=== PATIENT | female | born 1960 | race Caucasian/White ===

== ENCOUNTER 2023-09-22 05:09 | Observation (INO) ==
--- NOTE | 2023-08-25 08:36 | PAT Medication Instructions ---
Medication Instructions Date of Service August 25, 2023 Home Medications Medication Instructions Recorded epinephrine 0.3 mg/0.3 mL 0.3 mg (0.3 mL) IM Q10M PRN 03/12/20 injection, auto-injector (EpiPen anaphylaxis #2 ea 2-John) albuterol sulfate 90 mcg/actuation 1 puff inhalation Q6H PRN 03/05/22 aerosol inhaler (ProAir HFA) shortness of breath or wheezing #8.5 grams ketoconazole 2 % shampoo 1 applic topical Q14D #120 mL 10/04/22 atorvastatin 20 mg tablet 20 mg PO QAM #90 tabs 01/26/23 levothyroxine 50 mcg tablet 75 mcg (1.5 x 50 mcg) PO QAM #135 06/16/23 tabs pantoprazole 40 mg tablet,delayed 40 mg PO BID #180 tabs 07/04/23 release epinephrine 0.3 mg/0.3 mL injection, auto-injector (EpiPen 2-John) 0.3 mg (0.3 mL) IM Q10M PRN aluminum hydrox-magnesium carb 95 mg-358 mg/15 mL oral suspension (Gaviscon) 15 ml PO UD PRN fexofenadine 60 mg-pseudoephedrine ER 120 mg tablet,ext.release,12 hr (Vandana-D 12 Hour) 1 tab PO QAM Probiotic 1 tab PO QAM albuterol sulfate 90 mcg/actuation aerosol inhaler (ProAir HFA) 1 puff i nhalation Q6H PRN ketoconazole 2 % shampoo 1 applic topical Q14D atorvastatin 20 mg tablet 20 mg PO QAM levothyroxine 50 mcg tablet 75 mcg (1.5 x 50 mcg) PO QAM pantoprazole 40 mg tablet,delayed release 40 mg PO BID cholecalciferol (vitamin D3) 25 mcg (1,000 unit) capsule (Vitamin D3) 25 mcg PO DAILY escitalopram oxalate 10 mg tablet 10 mg PO HS magnesium 1 tab PO DAILY psyllium husk 3.4 gram/5.4 gram oral powder (Metamucil) 1 tbsp PO DAILY triamcinolone acetonide 0.1 % topical cream 1 applic topical DAILY zinc 1 tab PO DAILY Continue as directed epinephrine 0.3 mg/0.3 mL injection, auto-injector (EpiPen 2-John) 0.3 mg (0.3 mL) IM Q10M PRN(if needed) STOP taking 24 hours before surgery ketoconazole 2 % shampoo 1 applic topical Q14D triamcinolone acetonide 0.1 % topical cream 1 applic topical DAILY DO NOT take the morning of surgery aluminum hydrox-magnesium carb 95 mg-358 mg/15 mL oral suspension (Gaviscon) 15 ml PO UD PRN fexofenadine 60 mg-pseudoephedrine ER 120 mg tablet,ext.release,12 hr (Vandana-D 12 Hour) 1 tab PO QAM Probiotic 1 tab PO QAM cholecalciferol (vitamin D3) 25 mcg (1,000 unit) capsule (Vitamin D3) 25 mcg PO DAILY magnesium 1 tab PO DAILY psyllium husk 3.4 gram/5.4 gram oral powder (Metamucil) 1 tbsp PO DAILY zinc 1 tab PO DAILY Take morning of surgery With a small sip of water, OTHERWISE NOTHING TO EAT OR DRINK AFTER MIDNIGHT: albuterol sulfate 90 mcg/actuation aerosol inhaler (ProAir HFA) 1 puff inhalation Q6H PRN(use if needed; please bring with you to hospital day of surgery if possible) atorvastatin 20 mg tablet 20 mg PO QAM levothyroxine 50 mcg tablet 75 mcg (1.5 x 50 mcg) PO QAM pantoprazole 40 mg tablet,delayed release 40 mg PO BID Take evening before surgery albuterol sulfate 90 mcg/actuation aerosol inhaler (ProAir HFA) 1 puff inhalation Q6H PRN(if needed) pantoprazole 40 mg tablet,delayed release 40 mg PO BID escitalopram oxalate 10 mg tablet 10 mg PO HS Other Notes If you have any questions please call us at [phone] or [phone] or [phone] or [phone]
--- NOTE | 2023-08-31 10:27 | Anesthesiology Consultation ---
Date of Service August 31, 2023 Assessment & Plan (1) Encounter for pre-operative examination: - Outpatient joint assessment: Pt currently scheduled for inpatient pathway. If surgeon requests review for outpatient joint pathway, patient is not recommended candidate for outpatient joint program from anesthesia standpoint based on available information. - PCP visit (07/04/23): "The patient recounts an incident two weeks ago during a vacation where she experienced a fall while seated on an unfinished ventage chair. She experienced a sudden clicking sound, causing her to fall backwards, striking her head on the logs behind her. Despite the impact, she did not lose consciousness or experience vomiting. The initial fall and injury occurred 3 weeks ago." "Due to the patient's pain after fall approximately 2 to 3 weeks after the original fall with no other associated symptoms will rule out potential fracture or injury.. Obtain x-ray of cervical spine.. Patient recommended ER evaluation if the patient's symptoms become severe, associated with headache nausea vomiting confusion. The symptoms should improve if muscular over the next couple weeks if not additional imaging may be warranted such as a CT of the head, CT of the neck.." Patient had c-spine imaging done 07/05/23 with no cervical spine fractures identified. No evidence for cervical spine instability during flexion or extension. No residual issues/complaints developed subsequently per patient at PAT visit 08/31/23. - Infectious disease screening: Per assessment on 08/31/23: No known recent infectious disease contacts. Patient states she did not wear oral appliance the previous night as she normally does and had sore throat/sinus issues the following day which she felt is r/t to this (similar scenarios in the past per patient). Home Covid test came back negative 08/31/23. Covid test done 08/30 ([facility]) was negative as well. Patient was advised to monitor symptoms and contact PAT if not back to baseline prior to surgery. Chart Review Chart Review: Acceptable Risk for Surgery (pending evaluation DOS) and Patient seen in Pre Admission Testing Teaching & Discussion Pre-Anesthesia Teaching/Discussion Notes: Instructed NPO after midnight before surgery,except medications with 15 cc of water. Medication instructions provided according to the PAT guidelines. History Surgery Operation Date: 09/16/23 08:50 Proposed Procedures p Right Total Knee Arthroplasty - Bill Dotson MD Height/Weight Height: 5 ft 7 in Weight: 93.9 kg Allergies Allergy/AdvReac Type Severity Reaction Status Date / Time duloxetine AdvReac Mild Verified 08/18/23 11:08 acetaminophen [From Percocet] AdvReac Unknown N/V Verified 08/18/23 11:08 hydrocodone [From Vicodin] AdvReac Unknown N/V Verified 08/18/23 11:08 ketorolac [From Toradol] AdvReac Unknown N/V Verified 08/18/23 11:08 oxycodone [From Percocet] AdvReac Unknown N/V Verified 08/18/23 11:08 sumatriptan [From Imitrex] AdvReac Unknown N/V Verified 08/18/23 11:08 MOLDS/ANIMALS/GRASS/TREES/DUST Allergy Unknown Sinusitis, Uncoded 08/26/23 11:00 welts, asthma flare Medications Home Medications Medication Instructions Recorded Confirmed Last Taken epinephrine 0.3 mg/0.3 mL 0.3 mg (0.3 mL) IM Q10M PRN 03/12/20 08/18/23 Unknown injection, auto-injector (EpiPen anaphylaxis #2 ea 2-John) aluminum hydrox-magnesium carb 95 15 ml PO UD PRN Heartburn 10/15/20 08/18/23 10/10/20 mg-358 mg/15 mL oral suspension (Gaviscon) fexofenadine 60 mg-pseudoephedrine 1 tab PO QAM allergy symptoms 11/26/21 08/18/23 01/05/22 ER 120 mg tablet,ext.release,12 hr (Vandana-D 12 Hour) Probiotic 1 tab PO QAM 12/31/21 08/18/23 01/05/22 albuterol sulfate 90 mcg/actuation 1 puff inhalation Q6H PRN 03/05/22 08/18/23 Unknown aerosol inhaler (ProAir HFA) shortness of breath or wheezing #8.5 grams ketoconazole 2 % shampoo 1 applic topical Q14D #120 mL 10/04/22 08/18/23 Unknown atorvastatin 20 mg tablet 20 mg PO QAM #90 tabs 01/26/23 08/18/23 Unknown levothyroxine 50 mcg tablet 75 mcg (1.5 x 50 mcg) PO QAM #135 06/16/23 08/18/23 Unknown tabs pantoprazole 40 mg tablet,delayed 40 mg PO BID #180 tabs 07/04/23 08/18/23 Unknown release cholecalciferol (vitamin D3) 25 25 mcg PO DAILY 08/18/23 08/18/23 Unknown mcg (1,000 unit) capsule (Vitamin D3) escitalopram oxalate 10 mg tablet 10 mg PO HS 08/18/23 08/18/23 Unknown magnesium 1 tab PO DAILY 08/18/23 08/18/23 Unknown psyllium husk 3.4 gram/5.4 gram 1 tbsp PO DAILY 08/18/23 08/18/23 Unknown oral powder (Metamucil) triamcinolone acetonide 0.1 % 1 applic topical DAILY 08/18/23 08/18/23 Unknown topical cream zinc 1 tab PO DAILY 08/18/23 08/18/23 Unknown Wheeled Walker #1 ea 08/29/23 Unknown Past Medical History Medical History Adjustment disorder with depressed mood Allergic rhinitis Asthma Bilateral primary osteoarthritis of knee H/O supraventricular tachycardia Hx cardiac ablation Hx of gastroesophageal reflux (GERD) Hx of osteoarthritis Hyperlipidemia Hypothyroidism Migraine headache hx Nocturnal hypoxemia Per records Paroxysmal atrial tachycardia Hx cardiac ablation Paroxysmal ventricular tachycardia Raynauds disease Restless legs syndrome Rosacea Sleep apnea Sleep study 02/2020: Obstructive sleep apnea effectively treated with an oral appliance (recommendation per study: continue use of oral appliance) Follows with Dr. Peck Exercise / Class Metabolic Activity III < 4 Walking/Shop/Light housework (one FS: No CP, + SOB (stable/chronic)) Past Family History Family History Father , 1985 Alzheimer disease Mother Dementia Congestive heart failure Thyroid goiter Son Allergic rhinitis Grandmother Congestive heart failure Myocardial infarction Sister Family history of colonic polyps Hypothyroid Brother Family history of colonic polyps Other Family history of cancer of mouth Denies family history of Ovarian cancer Breast cancer Colorectal cancer Past Surgical History Surgical History H/O cardiac radiofrequency ablation (~2017) H/O colonoscopy H/O right inguinal hernia repair History of anesthesia reaction "Tends to burn right through it," wakes up during procedures Prior to one of her procedures, pt was very cold/shivering when brought to OR and they had to warm her up for a long time before they could start the surgery History of bronchoscopy 2010 History of esophagogastroduodenoscopy (EGD) History of foot surgery Right foot - repair of perineal tendon (2022) S/P nasal septoplasty 2015 2016- "to clean up polyps from first surgery" Past Anesthesia History Other * "Tends to burn right through it," wakes up during procedures * Prior to one of her procedures, pt was very cold/shivering when brought to OR and they had to warm her up for a long time before they could start the surgery History of PONV No Hx of PONV and Hx of Motion Sickness Social History Smoking Status: Never smoker Do You Dip or Chew Tobacco: No Hx Alcohol Use: Yes Alcohol type: wine and hard liquor alcohol intake frequency: holidays/special occasions only substance use type: marijuana (Remote hx 45 years ago) Review of Systems Patient denies chest pain, shortness of breath, fever, chills, cough, wheezing, palpitations. Physical Exam Vital Signs BP 120/80 P 90 TEMP 98.6 SP02 96%RA RESP 18 Physical Full cervical extension range of motion. Full TMJ range of motion. TMD 3 finger breaths Mallampati Score 3 Dentition: intact, upper front veneer Lungs: clear throughout to auscultation Cardiac: regular rate and rhythm, no murmurs noted Spine: normal Carotid arteries: negative bruit Extremities: no LE edema Lab Results Anesthesia Preop Results Results Anesthesia Widget: WBC 7.93 K/ul (4.8-10.8) 08/31/23 Hgb 13.4 g/dl (12.0-16.0) 08/31/23 Hct 39.8 % (37.0-47.0) 08/31/23 Plt 340 K/uL (130-400) 08/31/23 Na 137 mmol/L (136-145) 08/31/23 K 3.9 mmol/L (3.5-5.1) 08/31/23 Cl 104 mmol/L (98-107) 08/31/23 CO2 24 mmol/L (21-32) 08/31/23 BUN 9 mg/dl (6-23) 08/31/23 Creat 0.76 mg/dl (0.6-1.2) 08/31/23 Glucose Level 89 mg/dl (70-99(Fasting)) 08/31/23 PT 10.5 Seconds (9.0-12.0) 08/31/23 PTT 28 Seconds (21-31) 08/31/23 INR 1.0 (0.9-1.1) 08/31/23 SARS-CoV-2 RNA (RT-PCR) Negative (Negative) 08/31/23 Blood Type O Positive 08/31/23 Antibody Screen NEGATIVE 08/31/23 Testing Electrocardiogram Date: 08/31/23 NSR at 78bpm. "Normal ECG" Chest X-Ray Date: 08/31/23 FINDINGS: No lines and tubes are seen. Calcified aortic knob is seen. The lungs are clear. No evidence of pleural effusion or pneumothorax. IMPRESSION: No acute chest disease.
--- NOTE | 2023-09-10 11:09 | History & Physical Report ---
Date of Service September 10, 2023 Assessment & Plan (1) Right knee DJD: 63-year-old female with persistent progressive right knee pain discomfort. She got advanced patellofemoral arthritis and moderately advanced tibiofemoral arthritis. She is failed all conservative measures. Is beyond the point where knee arthroscopy would help her. She like to have her knee replaced. Plan: When taken to the operating do right total knee replacement. The risks Mente this procedure explained the patient include but not limited to DVT PE infection neurological and vascular bleeding palm pain limb range of motion test is fairly her symptoms incomplete relief of symptoms need for further surgery in future excetra. The patient understands and desires to proceed. Informed consent was obtained. I did tell her that knee replacement for primarily patellofemoral arthritis is a little bit less predictable as far as how much it helps. She may still have some residual pain. She is failed all conservative measures and would like to proceed. She is planned to be discharged to home using [facility] home [facility] program. Will use aspirin for DVT prophylaxis. She does not do well with Toradol or oxycodone codon. Will try and use Dilaudid for pain control. (2) GERD (gastroesophageal reflux disease): (3) Asthma: (4) Hypothyroidism: (5) Hypercholesterolemia: (6) Obstructive sleep apnea: History of Present Illness Chief Complaint: . Right knee pain Primary Care Provider: Ankur Guzmán DO . The patient is a 63-year-old female referred by Dr. Rubio for definitive treatment of right knee. She got a long history of right knee pain discomfort that is gradually gotten worse over time. She was initially seen by Dr. Anderson and then more recently by Dr. Rubio. She been through extensive conservative treatment which has become less successful over time. She had steroid shots and gel shots. She got global pain. The more she is up and on her knee the more it hurts. She limps more as the day goes on. The last shots did not help much at all. She is ready to have her right knee replaced. Allergies Allergy/AdvReac Type Severity Reaction Status Date / Time duloxetine AdvReac Mild Verified 09/02/23 10:03 acetaminophen [From Percocet] AdvReac Unknown N/V Verified 09/02/23 10:03 hydrocodone [From Vicodin] AdvReac Unknown N/V Verified 09/02/23 10:03 ketorolac [From Toradol] AdvReac Unknown N/V Verified 09/02/23 10:03 oxycodone [From Percocet] AdvReac Unknown N/V Verified 09/02/23 10:03 sumatriptan [From Imitrex] AdvReac Unknown N/V Verified 09/02/23 10:03 MOLDS/ANIMALS/GRASS/TREES/DUST Allergy Unknown Sinusitis, Uncoded 09/02/23 10:03 welts, asthma flare Home Medications Medication Instructions Recorded Confirmed Type epinephrine 0.3 mg/0.3 mL 0.3 mg (0.3 mL) IM Q10M PRN 03/12/20 09/02/23 Rx injection, auto-injector (EpiPen anaphylaxis #2 ea 2-John) aluminum hydrox-magnesium carb 95 15 ml PO UD PRN Heartburn 10/15/20 09/02/23 History mg-358 mg/15 mL oral suspension (Gaviscon) fexofenadine 60 mg-pseudoephedrine 1 tab PO QAM allergy symptoms 11/26/21 09/02/23 History ER 120 mg tablet,ext.release,12 hr (Vandana-D 12 Hour) Probiotic 1 tab PO QAM 12/31/21 09/02/23 History albuterol sulfate 90 mcg/actuation 1 puff inhalation Q6H PRN 03/05/22 09/02/23 Rx aerosol inhaler (ProAir HFA) shortness of breath or wheezing #8.5 grams ketoconazole 2 % shampoo 1 applic topical Q14D #120 mL 10/04/22 09/02/23 Rx atorvastatin 20 mg tablet 20 mg PO QAM #90 tabs 01/26/23 09/02/23 Rx levothyroxine 50 mcg tablet 75 mcg (1.5 x 50 mcg) PO QAM #135 06/16/23 09/02/23 Rx tabs pantoprazole 40 mg tablet,delayed 40 mg PO BID #180 tabs 07/04/23 09/02/23 Rx release cholecalciferol (vitamin D3) 25 25 mcg PO DAILY 08/18/23 09/02/23 History mcg (1,000 unit) capsule (Vitamin D3) escitalopram oxalate 10 mg tablet 10 mg PO HS 08/18/23 09/02/23 History magnesium 1 tab PO DAILY 08/18/23 09/02/23 History psyllium husk 3.4 gram/5.4 gram 1 tbsp PO DAILY 08/18/23 09/02/23 History oral powder (Metamucil) triamcinolone acetonide 0.1 % 1 applic topical DAILY 08/18/23 09/02/23 History topical cream zinc 1 tab PO DAILY 08/18/23 09/02/23 History Wheeled Walker #1 ea 08/29/23 09/02/23 Rx azithromycin 250 mg tablet See Rx Instructions PO .COMPLEX #6 09/02/23 09/02/23 Rx tabs prednisone 20 mg tablet 40 mg (2 x 20 mg) PO DAILY #10 tabs 09/02/23 09/02/23 Rx Past Med/Surg History Problem List (Updated 09/10/23 @ 11:07 by Bill Dotson MD) Right knee DJD CMC arthritis Medial meniscus tear Abnormal CT scan, gallbladder Epigastric pain Change in bowel habits Adjustment disorder with depressed mood Left knee DJD Gastrocnemius tendon tear GERD (gastroesophageal reflux disease) Insomnia Encounter for pre-operative examination Asthma Hypothyroidism Hypercholesterolemia Obstructive sleep apnea Using mouth appliance Medical History Bilateral primary osteoarthritis of knee Nocturnal hypoxemia Per records Hypothyroidism Hyperlipidemia Adjustment disorder with depressed mood Hx of osteoarthritis Hx of gastroesophageal reflux (GERD) Asthma Sleep apnea Sleep study 02/2020: Obstructive sleep apnea effectively treated with an oral appliance (recommendation per study: continue use of oral appliance) Follows with Dr. Cisco Perry Raynauds disease H/O supraventricular tachycardia Hx cardiac ablation Allergic rhinitis Migraine headache hx Paroxysmal atrial tachycardia Hx cardiac ablation Paroxysmal ventricular tachycardia Restless legs syndrome Surgical History History of anesthesia reaction "Tends to burn right through it," wakes up during procedures Prior to one of her procedures, pt was very cold/shivering when brought to OR and they had to warm her up for a long time before they could start the surgery History of esophagogastroduodenoscopy (EGD) History of foot surgery Right foot - repair of perineal tendon (2022) History of bronchoscopy 2010 S/P nasal septoplasty 2015 2016- "to clean up polyps from first surgery" H/O cardiac radiofrequency ablation (~2017) H/O colonoscopy H/O right inguinal hernia repair Family History Father , 1985 Alzheimer disease Mother Dementia Congestive heart failure Thyroid goiter Son Allergic rhinitis Grandmother Congestive heart failure Myocardial infarction Sister Family history of colonic polyps Hypothyroid Brother Family history of colonic polyps Other Family history of cancer of mouth Denies family history of Ovarian cancer Breast cancer Colorectal cancer Social History Smoking Status: Never smoker Second Hand Exposure: No; Do You Dip or Chew Tobacco: No; Hx Alcohol Use: Yes Alcohol type: wine and hard liquor Alcohol Intake Frequency: 2-4 x/Month Preferred Language: [place] Communication Ability: Effective Visual Impairment: Limited Hearing Ability: Normal Executive Chef Assistant Required: No Beliefs That Will Affect Care: None marital status: Current Living Situation: Spouse current occupational status: employed 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 Physical Exam . Physical examination reveals a pleasant middle-aged female. She walks independently. Fairly minimal limp. Small knee effusion. She is tender over the medial joint line. She got crepitance with knee motion. Range of motion 0- 1 25. No particular pain with hip motion. She is neurologically intact. Constitutional WD/WN, vitals as above Respiratory normal respiratory effort, lungs clear to auscultation Cardiovascular RRR, no murmur, no edema Gastrointestinal (Abdomen) normal bowel sounds, soft, nontender, no hepatosplenomegaly Results & Data Results & Data Laboratory Results . Diagnostic Findings . X-rays the right knee were reviewed. Shows moderate medial and lateral compartment arthritis. She got bone spurs medially and laterally. She got advanced patellofemoral arthritis. MRI was also reviewed from June of last year. Shows significant patellofemoral arthritis. She got the medial and lateral meniscus tears with some mild chondral disease of the tibiofemoral joint. PG Care Time/CCT Total # of Minutes Spent Total Time Spent with Patient: Total time spent is greater than 50% in coordination of care (as documented) at patient's floor/unit and/or counseling patient: Coding Level of Care Code None Diagnoses Right knee DJD M17.11 GERD (gastroesophageal reflux disease) K21.9 Asthma J45.909 Hypothyroidism E03.9 Hypercholesterolemia E78.00 Obstructive sleep apnea G47.33
[~2023-09-22 05:09] MED LIST: ACETAMINOPHEN 500 MG TAB PO SCH; CeleBREX 200 MG CAP PO SCH; FAMOTIDINE 20 MG TAB PO SCH; LR 500ML BOLUS, THEN 15ML/HR IV SCH; LR 60ML/HR IV SCH; METOCLOPRAMIDE HCL 10 MG TABLET PO SCH; ROPIV 0.5% 246mg, Ketorolac 30mg, EPINEPHrine 0.5mg in NSS INFIL SCH; Scopolamine 1 MG TDSY TD SCH; TRANEXAMIC ACID 1,000 MG **IV Intra-op IV SCH; ceFAZolin 2000MG 2,000 MG/15 ML SYR IV SCH; dexAMETHasone**PF** 10 MG/ML VIAL IV SCH
[2023-09-22] MEDS: Scopolamine 1 MG TDSY TD SCH (05:59)
[2023-09-22] MEDS: METOCLOPRAMIDE HCL 10 MG TABLET PO SCH (06:00)
[2023-09-22] MEDS: ACETAMINOPHEN 500 MG TAB PO SCH ×2 (06:00→13:23)
[2023-09-22] MEDS: FAMOTIDINE 20 MG TAB PO SCH (06:02)
[2023-09-22] MEDS: CeleBREX 200 MG CAP PO SCH (06:03)
[2023-09-22] MEDS: LR 60ML/HR IV SCH (06:04)
[2023-09-22] MEDS: LR 500ML BOLUS, THEN 15ML/HR IV SCH (06:04)
[2023-09-22] MEDS: dexAMETHasone**PF** 10 MG/ML VIAL IV SCH (06:04)
[2023-09-22] MEDS ORDERED: ROPIVACAINE 0.5% 5 MG/ML 30 ML VIAL ONE (06:21)
[2023-09-22] MEDS ORDERED: BUPIVACAINE 0.5 % 5 MG/1 ML PF 10ML VIAL ONE (06:21)
[2023-09-22] MEDS ORDERED: MIDAZOLAM HCL 1 MG/ML 2ML VIAL ONE (06:31)
[2023-09-22] MEDS ORDERED: fentaNYL citrate PF 100 MCG/2 ML VIAL ONE (06:31)
[2023-09-22] MEDS ORDERED: PROPOFOL IV EMULSION 10 MG/ML 20 ML VIAL IV ONE ×3 (06:32→07:31)
--- NOTE | 2023-09-22 06:55 | History & Physical Bridge Note ---
Date of Service September 22, 2023 History & Physical Bridge Note I have examined the patient, reviewed the History & Physical and in the interval since the performance of the History & Physical I have noted the following changes of clinical significance: no changes noted
[2023-09-22] MEDS: ceFAZolin 2000MG 2,000 MG/15 ML SYR IV SCH ×2 (07:05→14:35)
[2023-09-22] MEDS ORDERED: fentaNYL citrate PF 100 MCG/2 ML VIAL IV PRN (07:24)
[2023-09-22] MEDS ORDERED: ATROPINE SULFATE 0.1 MG/ML 10ML SYR IV PRN (07:24)
[2023-09-22] MEDS ORDERED: ePHEDrine sulfate 50 MG/ML AMP IV PRN (07:24)
[2023-09-22] MEDS ORDERED: ONDANSETRON INJ 2 MG/ML 2 ML VIAL IV PRN (07:24)
[2023-09-22] MEDS: ORTHO JOINT ANESTHETIC ONE (07:36)
[2023-09-22] MEDS: ROPIV 0.5% 246mg, Ketorolac 30mg, EPINEPHrine 0.5mg in NSS INFIL SCH (07:36)
[2023-09-22] MEDS: TRANEXAMIC ACID 1,000 MG **IV Intra-op IV SCH (07:50)
--- NOTE | 2023-09-22 08:53 | Operative Report ---
PG Post Operative Report Pre & Post Diagnosis Operation Date: 09/22/23 07:00 Pre-Op Diagnosis: Right Knee Degenerative Joint Disease Post-Op Diagnosis: Right Knee Degenerative Joint Disease I identified the patient and participated in the time-out.: Yes Procedure Operation Date: 09/22/23 07:00 Actual Procedures p Right Total Knee Arthroplasty(Right) - Bill Dotson MD Surgeon Bill Dotson MD Billing Rep Rodriguez Toth PA-C Estimated Blood Loss 50 Findings Consistent with Post-Op Diagnosis Operative findings showed right knee DJD. She had pretty extensive grade 4 [id number] disease of the patellofemoral joint particularly well-preserved patella. She did have some grade 4 changes medially and laterally in the tibiofemoral compartments but no real bony eburnation. Moderate-sized joint effusion. Specimens Right knee sent for pathology. Anesthesia Type Spinal MAC Complications none Disposition Accompanied Patient To Recovery: No Indications The patient is a 63-year-old female has had a several year history of increasing right knee pain discomfort is become less responsive to conservative care over time patient been through extensive conservative management. X-rays show a moderate tibiofemoral disease but advanced patellofemoral arthritis. Treatment options were explained. She was strongly desiring knee replacement. Description of Procedure Operative implants consist of: 1 Biomet Vanguard size 65 right posterior stabilized femoral component. 2. Biomet size 67 tibial tray. 3. 10 mm posterior stabilized polyethylene insert. 4. 31 x 8 all poly patella. The patient was taken the operating, identified, placed on the operating table in the supine position. All contact areas were appropriately padded. IV antibiotics tried by anesthesia team. A spinal anesthetic and abductor canal block had provided holding area. A Lee catheter was placed in sterile fashion. Right Tetrick was then placed in the right lower extremities then prepped and draped in usual sterile fashion. The right leg was elevated exsanguinated with use of an Esmarch and a turn was placed at 300 mmHg. An anterior approach to the right knee was then performed to a longitudinal incision centered over the patella. Sharp dissection was carried through subcutaneous tissue down the extensor mechanism. A medial parapatellar arthrotomy incision was made. Some subperiosteal dissection was carried out medially. The fat pad was resected from Neath patella tendon. Lateral patellofemoral ligament was released. Patella subluxated laterally and the knee was flexed. The osteophytes taken off distal femur. The ACL and PCL were then released in the distal femur. The tibia subluxated anteriorly. The external treatment line jig was then placed on the anterior face the tibia and adjusted 12 mm medially. Proximal tibial cut was made to move out to 3 mm of bone from the medial side. Tibia sized to a size 67. Attention drawn the femur. The distal femur Zaro the sharp drill. Intramedullary canal was suction. A right 5 degree valgus cutting guide was placed. The distal femoral cutting block was pinned in place. Distal femoral cut was made to take an additional 3 mm bone off distal femur. The femur was then sized to a size 67.5. We did eventually downsize this to a 65. We initially made the cuts that with the AP cutting block about 4 degrees of external rotation. I used first use a 67.5 guide and due to the narrow medial lateral dimensions I then placed a 65 guide and adjusted the anterior cut a bit and cut for the 65 component. Box cutting guide was then placed in the just slight lateral and the box cut was made. The knee was flexed. The remnants of the medial lateral menisci were excised. The osteophyte taken off the posterior aspect the femur. Trial femoral component was placed. The tibial tray was pinned in Lisa external rotation and the drill and stem punch were used. Defect in proximal tibia for the tibial tray. Knee was then trialed and 10 mm insert fit most appropriately. Attention drawn the patella. The patella was cleaned of all soft tissue. Patella thickness measured about 20 mm in thickness. We cut this down to 13. Was sized to a size 31 patella. The lug holes were drilled for 31 patella. The lateral osteophyte was removed. Patella button was placed. Knee was taken through range of motion and the patella tracked nicely with no thumbs test. Attention drawn to place the permanent components. All trial components were removed. Bone plug was placed in the distal femur limit blood loss. A double batch Palacos G cement was mixed. Biomet Cutanea Life Sciencesguard size 65 right posterior Byce femoral component, a size 67 tibial tray, 10 mm posterior Byce polyethylene insert, 31 x 8 all poly patella then cemented in place. Knee was brought out into full extension till cement hardened. Final cement check was then performed. The pericapsular tissues were injected with total 100 cc of Ortho mix. Patient did receive 1 g of tranexamic acid. The tourniquet was then let down for final tourniquet time 56 minutes. Hemostasis assured use electrocautery. Extensor Meclomen closed with combination 1 PDS suture #1 Vicryl suture in a [id number] fashion. Extensor Meclomen checked found to be intact in the subcutaneous tissue then closed with 2 Dexon suture in a buried interrupted fashion skin was closed skin jose. Leg was then cleaned and dried and a sterile dressing with Xeroform, 4 fours, sterile cast padding, David bandage were applied. Patient then transferred to the recovery room in stable condition. Patient tolerated procedure well and there were no complications. Rodriguez Toth, my physician clinical physician assistant, was present for the entire procedure. His assistance was essential and required for appropriate patient positioning, prepping and draping, surgical exposure, performing the technical details of the operation, placement the implants, closure of the wound, and placement of the sterile bandage. I attest to the content of the Intraoperative Record and any orders documented therein. Any exceptions are noted below.
--- NOTE | 2023-09-22 09:42 | XRay Report ---
RIGHT KNEE 2 VIEWS History: Right total knee arthroplasty. Degenerative arthritis. Postop. FINDINGS: The patient is status post a right total knee arthroplasty. The hardware is intact. No frac ture or dislocation. Skin jose are in place. IMPRESSION: Right total knee arthroplasty. No evidence for hardware complication. ACT 112: Negative or not required by law. Electronically signed by: Ronal Taylor M.D. 09/22/2023 9:41 AM
--- NOTE | 2023-09-22 09:44 | Anesthesiology Progress Note ---
Date of Service September 22, 2023 Anesthesia Post Procedure Vital Signs Vital Signs: Temp Pulse Pulse Resp BP Pulse Ox O2 Del Method 09/22/23 09:35 101 H 20 142/81 H 98 Room Air 09/22/23 09:25 97.7 F 91 H 14 133/73 97 Room Air 09/22/23 09:15 96 H 21 120/82 97 Room Air 09/22/23 09:05 85 14 123/66 95 Room Air 09/22/23 08:55 84 15 135/61 94 Room Air 09/22/23 08:46 97.0 F L 89 16 128/69 97 Room Air 09/22/23 05:45 98.1 F 80 17 141/78 H 99 Room Air Transfer of Care Handoff Completed per policy Notes Mental Status: alert / awake / arousable and participated in evaluation Patient Amnestic to Procedure: Yes Nausea / Vomiting: adequately controlled Pain: adequately controlled Airway Patency, RR, SpO2: stable & adequate BP & HR: stable & adequate Hydration State: stable & adequate Neuraxial Anesthesia: was administered and sensory block is resolving Anesthetic Complications: no major complications apparent and Pt Satisfied with anesthetic care
[2023-09-22] MEDS ORDERED: ALBUTEROL HFA 8 GM INHALER INH PRN (10:46)
[2023-09-22] MEDS ORDERED: EPINEPHrine INJ 1 MG/ML AMP IM PRN (10:46)
[2023-09-22] MEDS ORDERED: predniSONE 20 MG TAB PO SCH (10:46)
[2023-09-22] MEDS ORDERED: bisacodyL 10 MG SUPP PR PRN (10:46)
[2023-09-22] MEDS ORDERED: METOCLOPRAMIDE HCL INJ 5 MG/ML 2 ML VIAL IV PRN (10:46)
[2023-09-22] MEDS ORDERED: NON-FORMULARY MEDICATION (Magnesium Tablet) PO SCH (10:46)
[2023-09-22] MEDS ORDERED: NALOXONE HCL 0.4 MG/1 ML VIAL/CARP IV PRN (10:46)
[2023-09-22] MEDS ORDERED: SENNA 8.6 MG TAB PO SCH (10:46)
[2023-09-22] MEDS ORDERED: NON-FORMULARY MEDICATION (Zinc Tablet,Chewable) PO SCH (10:46)
[2023-09-22] MEDS ORDERED: ALUMINUM/MAGNESIUM SUSP 30 ML UDC PO PRN (10:46)
[2023-09-22] MEDS ORDERED: [UNRECOGNIZED DRUG - OTHER] PO PRN (10:46)
[2023-09-22] MEDS ORDERED: MAGNESIUM HYDROXIDE SUSP 30 ML UDC PO PRN (10:46)
[2023-09-22] MEDS: Scopolamine CHECK PATCH PLACEMENT SCH ×2 (10:49→16:27)
[2023-09-22] MEDS: CHOLECALCIFEROL 25 MCG (1000 UNITS) TAB PO SCH (12:01)
[2023-09-22] MEDS: DOCUSATE SODIUM 100 MG CAP PO SCH (12:01)
[2023-09-22] MEDS: PSYLLIUM or GUAR GUM FIBER 4GM PACKET PO SCH (12:01)
[2023-09-22] MEDS: MULTIVITAMIN TAB PO SCH (12:01)
[2023-09-22] MEDS: ASPIRIN 81 MG ECTAB PO SCH (12:01)
[2023-09-22] MEDS: ADVANCED PROBIOTIC 625 MG CAPSULE PO SCH (12:02)
[2023-09-22] MEDS: FEXOFENADINE 60 MG TAB PO SCH (12:02)
[2023-09-22] MEDS: LEVOTHYROXINE SODIUM 75 MCG TABLET PO SCH (12:04)
[2023-09-22] MEDS: ATORVASTATIN 20 MG TAB PO SCH (12:04)
[2023-09-22] MEDS: PANTOprazole 40 MG TAB PO SCH (12:04)
[2023-09-22] MEDS: TRIAMCINOLONE ACET 0.1% CR 15 GM TUBE TOP SCH (12:31)
[2023-09-22] MEDS: SODIUM CHLORIDE 0.9% 1,000 ML IV SCH (13:25)
[2023-09-22] MEDS: ONDANSETRON INJ 2 MG/ML 2 ML VIAL IV PRN (14:34)
[2023-09-22] MEDS: TRANEXAMIC ACID / 0.7% NACL 1,000 MG/100 ML BAG IV SCH (14:35)
[2023-09-22] MEDS: HYDROmorphone HCL 2 MG TAB PO PRN (15:27)
[2023-09-22] MEDS: HYDROmorphone INJ 0.5 MG/0.5 ML SYR IV PRN (17:09)
[2023-09-22] MEDS: ASCORBIC ACID 500 MG TAB PO SCH (17:10)
[2023-09-22] MEDS: KETOROLAC TROMETHAMINE 15 MG/ML VIAL IV PRN (17:57)
[2023-09-22] MEDS: ESCITALOPRAM OXALATE 10 MG TAB PO SCH (21:17)
[2023-09-22] MEDS: SENNA 8.6 MG TAB PO SCH (21:18)
[2023-09-23] MEDS ORDERED: HYDROmorphone HCL 2 MG TAB PO PRN (00:53)
[2023-09-23] MEDS: HYDROmorphone HCL 4 MG TAB PO PRN (02:41)
--- NOTE | 2023-09-23 07:36 | Orthopedic Progress Note ---
Date of Service September 23, 2023 Assessment & Plan (1) Status post right knee replacement: Plan: 63-year-old female postop day 1 from right knee replacement doing pretty well this morning. Pretty painful night but doing better. She is resorted to taking some Toradol. Plan: 1. DVT prophylaxis including thigh-high teds, SCDs, aspirin twice a day. 2. PT/OT. Weight-bear as tolerated. Right total knee protocol. 3. Pain control. She is doing quite bit better now that she started Toradol. She apparently had some vomiting with this in the past. Not a true allergic reaction but the side effect. Will see how she does with the Toradol. Continue the Dilaudid and Tylenol. 4. Disposition plan to discharge home with some home health if she does okay in therapy today. Admission and Anticipated Discharge Date Admission Date: September 22, 2023 Subjective 63-year-old female postop day 1 from right knee replacement. She is doing prett y well this morning. Had a pretty rough night initially as she was pretty painful. She got some Toradol and seems to be doing quite a bit better. No chest pain or shortness breath. Just knee pain. Physical Exam Physical Exam: Physical exam shows a pleasant middle-age female. She is lying in bed looks pretty comfortable this morning. Examination of the right leg reveals the dressing be clean dry and intact. Leg is well aligned. She can dorsiflex and plantarflex her foot appropriately. She is neurologically intact. Respiratory: normal respiratory effort, lungs clear to auscultation Cardiovascular: RRR, no murmur, no edema Gastrointestinal (Abdomen): normal bowel sounds, soft, nontender, no hepatosplenomegaly Results & Data Vital Signs (Past 12 Hours) Vital Signs Temp Pulse Resp BP Pulse Ox O2 Del Method 09/23/23 03:15 36.9 C 81 16 129/65 93 Room Air 09/22/23 23:00 36.8 C 90 16 123/69 93 Room Air Laboratory Results Lab results are pending.
[2023-09-23 07:45] LABS: Hematocrit (blood only) 33.7 % (37.0-47.0); Hemoglobin 11.3 g/dl (12.0-16.0); Mean Corpuscular Hgb Conc 33.5 g/dL (32.0-36.0); Mean Corpuscular Volume 86.4 fL (80.0-100.0); Mean Platelet Volume 9.5 fL (9.4-12.4); Platelet Count 335 K/uL (130-400); RDW Coefficient of Variation 13.1 % (11.5-14.5); RDW Standard Deviation 40.8 fL (36.4-46.3); White Blood Count 15.63 K/ul (4.8-10.8)
[2023-09-23] MEDS: dexAMETHasone 10 MG in SYRINGE 0 ML IV SCH (08:36)
[2023-09-23] MEDS: KETOROLAC TROMETHAMINE 15 MG/ML VIAL IV PRN (08:40)
[2023-09-23 08:42] LABS: BUN Creatinine Ratio 13.5 (10-20); Creatinine Clr Calc Pharmacy 77.9 ml/min; Est GFR (African American) 81.1 ml/min; Potassium 4.3 mmol/L (3.5-5.1)
== END 2023-09-23 13:20 | disposition home health service (06) ==
LOC: ASU 05:09 → 3N 05:09